=== PATIENT | male | born 1940 | race Caucasian/White ===

== ENCOUNTER 2017-03-05 01:14 | Emergency (ER) | payer MEDICARE, OTHER ==
[~2017-03-05] VITALS: Ht 170.2 cm; Wt 64.4 kg
[~2017-03-05 01:14] MED LIST: ALBUTEROL SULF8.5 GM INH; ASPIRIN EC325 MG PO; COMBIVENT RESPIM4 GM INH; FLUOXETINE HCL20 MG PO; IPRAT-ALBUT 0.5-3 ML INH; LEVAQUIN500 MG PO; LEVAQUIN750 MG PO; OMEPRAZOLE20 MG PO; PREDNISONE10 MG PO; PREDNISONE20 MG PO; PROVENTIL HFA6.7 GM INH; REFRESH TEARS15 ML OPTH; SIMVASTATIN20 MG PO; SPIRIVA18 MCG INH; SYMBICORT 16010.2 GM INH; TRUSOPT10 ML OPTH; ZITHROMAX250 MG PO
--- NOTE | 2017-03-05 12:07 | EKG ---
[facility] [address] [facility] [place] [address] Signed Sinus tachycardia with premature supraventricular complexes Anterolateral infarct , age undetermined Abnormal ECG No previous ECGs available Confirmed by FRANCIS READ MD ([id number] on 03/05/2017 12:07:12 PM Electronically Signed By: FRANCIS READ MD 03/05/17 1207 PATIENT NAME: STEPH POLLARD Electrocardiogram DATE OF : 36 PHYSICIAN: FRANCIS READ MD REPORT #: [id number] REPORT IS CONFIDENTIAL AND NOT TO BE RELEASED WITHOUT AUTHORIZATION
== END 2017-03-05 04:42 | disposition short-term general hospital (02) ==
LOC: ED 01:14
PROC: 0T9B70Z Drainage of Bladder with Drainage Device, Via Natural or Artificial Opening (ICD-10-PCS; principal; 2017-03-05)
DX: J44.1 Chronic obstructive pulmonary disease with (acute) exacerbation (principal); J96.90 Respiratory failure, unspecified, unspecified whether with hypoxia or hypercapnia; I10 Essential (primary) hypertension; Z87.891 Personal history of nicotine dependence; Z90.49 Acquired absence of other specified parts of digestive tract; Z88.0 Allergy status to penicillin; Z88.1 Allergy status to other antibiotic agents; Z88.5 Allergy status to narcotic agent; Z79.899 Other long term (current) drug therapy; Z79.52 Long term (current) use of systemic steroids
CPT/HCPCS: 31500; 36415; 36600; 51702; 71010; 80053; 81001; 82803; 83605; 83735; 83880; 84484; 85025; 87040; 93005; 93010; 94002; 94640; 94660; 94799; 96374; 96375; 96376; 99285; J0330; J0696; J2704; J2930; J7030